=== PATIENT | male | born 1965 | race African-American/Black ===

== ENCOUNTER 2025-07-18 10:18 | Emergency (ER) | payer MEDICAID ==
[~2025-07-18] VITALS: Ht 180.3 cm; Wt 97.0 kg
[2025-07-18] MEDS ORDERED: FENTANYL 2500MCG/250ML PMX 250 ML IV SCH (10:45)
[2025-07-18] MEDS: PROPOFOL 10MG/ML 100ML 100 ML IV SCH (10:45)
[2025-07-18] MEDS: PIPERACILLIN/TAZO 3.375G/50ML 50 ML IV ONE (11:04)
[2025-07-18 11:05] VITALS: PULSE 111; RESP 12; O2SAT 100
[2025-07-18 11:16] LABS: BASOPHILS % 1.1 % (0.0-2.0); EOSINOPHILS % 0.6 % (0.0-5.0); HEMATOCRIT. 21.5 % (42.0-52.0); HEMOGLOBIN. 7.1 g/dL (14.0-18.0); LYMPHOCYTES % 32.9 % (20.0-50.0); MEAN PLATELET VOLUME 7.9 fl (7.4-10.4); MONOCYTES % 10.7 % (2.0-8.0); NEUTROPHILS % 54.7 % (40.0-76.0); PLATELET 120 x1000/uL (130-400); RED BLOOD CELL COUNT 2.54 mill/uL (4.7-6.1); RED CELL DISTRIBUTION WIDTH 16.1 % (11.6-14.6)
[2025-07-18] MEDS: SUCCINYLCHOLINE CHLORIDE 200MG/10ML IV ONE (11:25)
[2025-07-18] MEDS: ETOMIDATE 2MG/ML 10ML VIAL IV ONE (11:25)
[2025-07-18 11:29] LABS: INR 1.0
[2025-07-18] MEDS: HUMAN-LANS PROTHROMBIN CPLX (PCC) 1000 UNITS VIAL IV ONE (11:30)
[2025-07-18] MEDS ORDERED: HUMAN-LANS PROTHROMBIN CPLX (PCC) 1000 UNITS VIAL IV ONE (11:30)
[2025-07-18 11:32] LABS: TROPONIN I HIGH SENSITIVITY 13 ng/L (3.0-53)
[2025-07-18 11:49] LABS: CREATININE 1.4 mg/dL (0.6-1.3); UREA NITROGEN BLOOD 22 mg/dL (9-23)
[2025-07-18 11:50] LABS: ETHANOL BLOOD < 10 mg/dL (<10); PROTEIN TOTAL 7.0 g/dL (6.0-8.3)
[2025-07-18 11:51] LABS: ASPARTATE AMINOTRANSFERASE 22 IU/L (<34); BILIRUBIN DIRECT 0.2 mg/dL (<=3.0)
[2025-07-18 11:52] LABS: BILIRUBIN TOTAL 0.7 mg/dL (0.1-1.0)
[2025-07-18] MEDS: VANCOMYCIN 1G PREMIX 200 ML IV ONE (12:08)
[2025-07-18] MEDS: FENTANYL 2500MCG/250ML PMX 250 ML IV PRN (12:09)
[2025-07-18 12:23] LABS: BG BASE EXCESS -0.2 mmol/L (-2.0-3.0); BG CARBOXYHEMOGLOBIN 2.0 % (0.5-1.5); BG DEOXYHEMOGLOBIN 0.3 % (0.0-5.0); BG FRACTION INSPIRED OXYGEN 100; BG HCO3 ACT 27.9 mmol/L (21.0-28.0); BG METHEMOGLOBIN 0.3 % (0.5-1.5); BG OXYGEN SATURATION 99.7 % (94.0-98.0); BG OXYHEMOGLOBIN 97.4 % (94.0-98.0); BG PCO2 70.0 mmHg (35.0-48.0); BG PEEP (cmH2O) 5.0 cmH2O; BG PH 7.219 (7.350-7.450); BG PO2 368.3 mmHg (83.0-108.0); BG SAMPLE SITE RIGHT BRACHIAL; BG TIDAL VOLUME(mL) 450.0 mL; BG TOTAL HEMOGLOBIN 7.5 g/dL (13.5-17.5); BG VENT MODE VENT - AC; BG VENT RATE 12.0 set
[2025-07-18 12:35] VITALS: PULSE 115; RESP 12; O2SAT 97
[2025-07-18 13:16] LABS: CLARITY URINE CLEAR (CLEAR); COLOR URINE YELLOW (YELLOW); GLUCOSE URINE TRACE (NEGATIVE); KETONES URINE NEGATIVE (NEGATIVE); LEUKOCYTE ESTERASE URINE NEGATIVE (NEGATIVE); NITRITE URINE NEGATIVE (NEGATIVE); OCCULT BLOOD URINE NEGATIVE (NEGATIVE); PH URINE 7.0 (4.5-8.0); PROTEIN URINE NEGATIVE (NEGATIVE); SPECIFIC GRAVITY URINE 1.020 (1.005-1.030); UROBILINOGEN URINE 0.2 E.U./dL (0.2-1.0)
[2025-07-18 13:23] LABS: *AMPHETAMINES SCREEN URINE NEGATIVE (NEGATIVE); *BENZODIAZEPINES SCREEN URINE NEGATIVE (NEGATIVE)
[2025-07-18 13:24] LABS: *BARBITURATES SCREEN URINE NEGATIVE (NEGATIVE); *COCAINE SCREEN URINE NEGATIVE (NEGATIVE); CANNABINOID URINE SCREEN NEGATIVE (NEGATIVE); ECSTASY MDMA SCREEN URINE NEGATIVE (NEGATIVE); METHADONE URINE SCREEN NEGATIVE (NEGATIVE); OPIATES URINE SCREEN NEGATIVE (NEGATIVE); PHENCYCLIDINE URINE SCREEN NEGATIVE (NEGATIVE)
[2025-07-18 13:29] LABS: INFLUENZA TYPE A Presumptive Negative (Pres. Neg.); INFLUENZA TYPE B Presumptive Negative (Pres. Neg.)
[2025-07-18 13:30] LABS: RESPIRATORY SYNCYTIAL VIRUS Not Detected (Not Detectd)
[2025-07-18 14:16] LABS: MUCUS URINE TRACE /lpf (NONE/TRACE)
[2025-07-18 14:17] LABS: RBC URINE NONE SEEN /hpf (0-2); WBC URINE 0-2 /hpf (0-2)
[2025-07-18 14:18] LABS: BACTERIA URINE TRACE
[2025-07-18 14:19] LABS: SQUAMOUS EPITHELIAL CELL URINE NONE SEEN /lpf (RARE/1+)
[2025-07-18 14:38] VITALS: O2SAT 97
[2025-07-18] MEDS: PROPOFOL 10MG/ML 100ML 100 ML IV PRN (14:38)
[2025-07-18] MEDS: IOHEXOL-350 100 ML BOTTLE ONE (15:34)
[2025-07-18 17:15] VITALS: PULSE 98; RESP 12; O2SAT 99
[2025-07-18 18:41] LABS: BG BASE EXCESS -1.0 mmol/L (-2.0-3.0); BG CARBOXYHEMOGLOBIN 2.1 % (0.5-1.5); BG DEOXYHEMOGLOBIN 6.0 % (0.0-5.0); BG FRACTION INSPIRED OXYGEN 40; BG HCO3 ACT 27.3 mmol/L (21.0-28.0); BG METHEMOGLOBIN 0.2 % (0.5-1.5); BG OXYGEN SATURATION 93.9 % (94.0-98.0); BG OXYHEMOGLOBIN 91.7 % (94.0-98.0); BG PCO2 71.1 mmHg (35.0-48.0); BG PEEP (cmH2O) 5.0 cmH2O; BG PH 7.202 (7.350-7.450); BG PO2 79.4 mmHg (83.0-108.0); BG SAMPLE SITE RIGHT RADIAL; BG TIDAL VOLUME(mL) 450.0 mL; BG TOTAL HEMOGLOBIN 7.2 g/dL (13.5-17.5); BG VENT MODE VENT - AC; BG VENT RATE 12.0 set
[2025-07-18 20:40] VITALS: BP 103/66; PULSE 120; RESP 12; TEMP 37.7; O2SAT 96
== END 2025-07-18 21:11 | disposition short-term general hospital (02) ==
LOC: ER 10:18 → EDBEDREQ 10:27 → CANBEDREQ 13:37 → ER 21:11
DX: J96.02 Acute respiratory failure with hypercapnia (principal); J96.01 Acute respiratory failure with hypoxia; I61.3 Nontraumatic intracerebral hemorrhage in brain stem; Z55.6 Problems related to health literacy; Z89.511 Acquired absence of right leg below knee; Z89.512 Acquired absence of left leg below knee; Z94.3 Heart and lungs transplant status; Z98.890 Other specified postprocedural states; Z20.822 Contact with and (suspected) exposure to COVID-19; Z79.899 Other long term (current) drug therapy
CPT/HCPCS: 80076; 80305; 80048; 81003; 80320; 82962; 83880; 83605; 83690; 83735; 85025; 85379; 85610; 85730; 86850; 86900; 86901; 87420; 87040; 87086; 84484; 87804 ×2; 36415; 84145; 71045; 71275; 70496; 70498; 70450; 82805; 82375; 93005; 31500; 96367; 96365; 99291; 99292; 87426; 36600; Q9967; J2543; J2704; C9132; J3373; J3010; G0480